=== PATIENT | male | born 1970 ===

== ENCOUNTER 2016-06-15 14:20 | Day surgery (SDC) | payer OTHER, MEDICARE ==
[2016-06-15] MEDS ORDERED: Lidocaine 2% Inj (20ml) ONE (15:30)
[2016-06-15] MEDS ORDERED: Nitroglycerin 50mg in D5W 0 MG/0 ML BOTTLE IV ONE (15:32)
[2016-06-15] MEDS ORDERED: Iohexol 350mgl/ml 50 ML ONE (15:32)
[2016-06-15 15:57] VITALS: BMI 45.6
[2016-06-15] MEDS ORDERED: Midazolam 2 MG/2 ML VIAL ONE (16:09)
[2016-06-15] MEDS ORDERED: Bacitracin 500 Units/gm Oint Foilpak UD TOP ONE (16:59)
[2016-06-15] MEDS ORDERED: Sodium Chloride 0.9% 1,000 ML IV SCH (17:00)
--- NOTE | 2016-06-15 17:34 | CP.SDSHP ---
Same Day Surgery H & P - History Proposed Procedure: pls see enclosed consult note - Allergies Allergies: Allergies Penicillins Allergy (Verified 12/10/15 03:44) RASH Short Stay Discharge - Short Stay Discharge Admitting Diagnosis/Reason for Visit: CHEST PAIN, ASTHMA, EXACERBATION, COPD Disposition: HOME/ ROUTINE
[2016-06-15 20:27] VITALS: RESP 20
[2016-06-15 21:44] VITALS: BP 136/77; PULSE 78; TEMP 98.7
--- NOTE | 2016-06-17 12:21 | CARD ---
APPROVED REPORT Procedure(s) performed: Selective Right and Left Coronary Angiography Left Ventriculogram HISTORY 65%. (EF Method: Echocardiogram), previous CHF, diabetes mellitus with oral treatment , chronic lung disease, tobacco history() : The patient is a former smoker , hypertension , dyslipidemia . INDICATION The indication(s) include : unstable angina . CASE TECHNIQUE The patient was brought electively to the Cardiac Catheterization Laboratory in a fasting state and was prepped and draped in a sterile manner. The right wrist was infiltrated with 2% Lidocaine subcutaneous anesthesia. A 5 Fr Prelude Transradial sheath was performed using coronary diagnostic catheters. The left coronary system was accessed and visualized with a 6 Fr JL 4 catheter. The right coronary system was accessed and visualized with a 6 Fr JR 3.5 catheter. The left ventricle was accessed and visualized with a 6 Fr JR 3.5 catheter. Closure device was deployed with a Fr TR Band (Large) without any complications. The patient tolerated the procedure well and there were no complications associated with the procedure. Vessel Analysis The patient's coronary anatomy is right dominant. The left main coronary artery is a medium size vessel free of disease. The left main trifurcates to the left anterior descending, circumflex, and ramus. The left anterior descending artery is a medium size vessel free of disease. The circumflex artery is a medium size vessel free of disease. The ramus intermedius artery is a medium size vessel free of disease. The right coronary artery is a medium size vessel free of disease. Left Ventricle The left ventricular ejection fraction is estimated to be 55%. There was no gradient across the aortic valve upon pullback. Conclusion No angiographic evidence of CAD. Normal left ventricular function Recommendations Aggressive Medical Therapy Weight Loss Reduction Program EP evaluation for PPM given heart block.
== END 2016-06-15 22:20 | disposition home or self-care (01) ==
LOC: CATH 14:20 → 2RSO 17:31 → CATH 22:20
PROVIDERS: ATTEND Internal Medicine Cardiovascular Disease
DX: I20.0 Unstable angina (principal); R07.9 Chest pain, unspecified; E11.9 Type 2 diabetes mellitus without complications; R06.00 Dyspnea, unspecified; E78.5 Hyperlipidemia, unspecified; I11.0 Hypertensive heart disease with heart failure; I50.9 Heart failure, unspecified; J44.9 Chronic obstructive pulmonary disease, unspecified; Z87.891 Personal history of nicotine dependence
CPT/HCPCS: 93458; 99152; C1769; C1894; J1644 ×2; J2250; J3010; J7030; J7040; Q9967